=== PATIENT | male | born 2000 | race Caucasian/White ===

== ENCOUNTER 2022-11-28 02:51 | Emergency (ER) | payer OTHER ==
[~2022-11-28] VITALS: Ht 185 cm; Wt 142.0 kg
[2022-11-28 03:01] VITALS: BP 139/98
--- NOTE | 2022-11-28 03:19 | ED General ---
General Chief Complaint: General Problems/Pain Stated Complaint: SHAKEY/LIGHTHEADED Nursing Triage Note: FEELS ANXIOUS, SHAKEY, TIRED. Source of Information: Patient Exam Limitations: No Limitations History of Present Illness Date Seen by Provider: Nov 28, 2022 Time Seen by Provider: 03:08 Initial Comments Patient is a 22yo male who has been up and awake since 0630 yesterday. He was driving back to [place] from [place] this morning when he started to feel weak and shakey. He states he called his mom and told her his symptoms and she suggested that he come to the ER to get checked out. He is wondering if he sent himself into a panic attack. He states as he was driving he "just didnt feel r ight". He deines chest pain, shortness of breath, nausea, swelling, fevers, chills difficulty with bowel or bladder. Takes no daily medications. Occ vapes and occ drinks alcohol. He had a 300mg caffeine energy drink earlier in the evening which he states he thinks didn't help much. Timing/Duration: 1-3 Hours Severity: Moderate Associated Systoms: Weakness Allergies and Home Medications Allergies Coded Allergies: codeine (Verified Allergy, Unknown, 11/28/22) Patient Home Medication List Home Medication List Reviewed: Yes Review of Systems Review of Systems Constitutional: see HPI EENTM: no symptoms reported Respiratory: no symptoms reported Cardiovascular: no symptoms reported Gastrointestinal: no symptoms reported Genitourinary: no symptoms reported Musculoskeletal: no symptoms reported Skin: no symptoms reported Psychiatric/Neurological: Anxiety Past Ifadubg-Blsibx-Uyirxt Hx Patient Social History Tobacco Use?: No Substance use?: No Alcohol Use?: No Pt feels they are or have been: No Immunizations Up To Date First/Initial COVID19 Vaccinat: X3 Past Medical History Surgery/Hospitalization HX: T/A Physical Exam Vital Signs Vital Signs - First Documented 11/28/22 03:01 Temp 36.9 Pulse 99 Resp 18 B/P (MAP) 139/98 (112) Pulse Ox 98 O2 Delivery Room Air Capillary Refill : Less Than 3 Seconds Height, Weight, BMI Height: '" Weight: lbs. oz. kg; 41.00 BMI Method: General Appearance: No Apparent Distress, WD/WN, Obese Eyes: Bilateral Eye Normal Inspection, Bilateral Eye PERRL, Bilateral Eye EOMI HEENT: PERRL/EOMI, TMs Normal, Pharynx Normal Neck: Normal Inspection Respiratory: Lungs Clear, Normal Breath Sounds, No Accessory Muscle Use, No R espiratory Distress Cardiovascular: Regular Rate, Rhythm, Normal Peripheral Pulses Extremity: Normal Inspection, Normal Range of Motion Neurologic/Psychiatric: Alert, Oriented x3, No Motor/Sensory Deficits, Normal Mood/Affect Skin: Normal Color, Warm/Dry Progress/Results/Core Measures Suspected Sepsis SIRS Temperature: Pulse: 99 Respiratory Rate: 18 Blood Pressure 139 /98 Mean: 112 Results/Orders Vital Signs/I&O 11/28/22 03:01 Temp 36.9 Pulse 99 Resp 18 B/P (MAP) 139/98 (112) Pulse Ox 98 O2 Delivery Room Air Capillary Refill : Less Than 3 Seconds Blood Pressure Mean: 112 Progress Note : Time: 03:24 Progress Note patient seen and evaluated by me. Eval today includes physical exam. Pertinent physical exam findings - wdwn obese male with stable VS - slightly high blood pressure. No concerning findings on physical exam other than obesity. He is laughing and joking, constantly apologizing for "wasting yall's time". ddx based on h&P includes fatigue, sleep deprivation, anxiety Patient provided reassurance. No concerning findings in the history or on PE to warrant labwork/inaging. Patient appears completely normal and without concerning findings. advised to go home and sleep. Return precautions provided in written form. Departure Impression Primary Impression: Fatigue Qualified Codes: R53.83 - Other fatigue Disposition: 01 HOME, SELF-CARE Condition: Stable Departure-Patient Inst. Decision time for Depature: 03:17 Referrals: NO,LOCAL PHYSICIAN (PCP/Family) Primary Care Physician Patient Instructions: Fatigue (DC) Add. Discharge Instructions: Try and get at least 6-8 hours of sleep a night. Follow up with a primary care physician to maintain overall good health Return to the Emergency Department for any new, concerning or emergent complaints YO JUNIOR MD Nov 28, 2022 03:19
== END 2022-11-28 03:23 | disposition home or self-care (01) ==
LOC: ER 02:54
DX: R53.83 Other fatigue (principal); E66.9 Obesity, unspecified; Z68.41 Body mass index [BMI] 40.0-44.9, adult; Z28.310 Unvaccinated for COVID-19
CPT/HCPCS: 99281